=== PATIENT | male | born 1995 | race Asian ===

== ENCOUNTER 2021-10-14 14:16 | Emergency (ER) | payer OTHER, SELFPAY ==
[2021-10-14] MEDS ORDERED: Ibuprofen 800 MG TAB ONE (14:48)
== END 2021-10-14 14:52 | disposition home or self-care (01) ==
LOC: MADERS 14:16
DX: S00.03XA Contusion of scalp, initial encounter (principal); S60.410A Abrasion of right index finger, initial encounter; F17.210 Nicotine dependence, cigarettes, uncomplicated; V43.52XA Car driver injured in collision with other type car in traffic accident, initial encounter
CPT/HCPCS: 99284